=== PATIENT | female | born 1945 | race African-American/Black ===

== ENCOUNTER 2020-11-04 07:29 | Emergency (ER) | payer OTHER ==
[~2020-11-04] VITALS: Ht 167.6 cm; Wt 79.4 kg
--- NOTE | 2020-11-04 08:00 | EKG ---
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: ANURADHA : 1945 Requested By: Akbar Manuel Order Number: [id number] MD: Juan Simmons Measurements Intervals [place] Rate: 85 P: -6 MS: 171 QRS: -39 QRSD: 102 T: 33 QT: 412 QTc: 490 Interpretive Statements Sinus rhythm LVH with secondary repolarization abnormality Borderline prolonged QT interval Baseline wander in lead(s) V1 No previous ECG available for comparison Electronically Signed On 11-04-2020 7:59:49 CDT by Juan Simmons [email or web address] <ELECTRONICALLY SIGNED> By: Juan Simmons MD, [facility] 11/04/20 0759 [id number] [id number] Juan Simmons MD, FACC /EPI
[2020-11-04 08:56] LABS: URINE BLOOD NEGATIVE (Negative); URINE CLARITY CLEAR; URINE COLOR YELLOW; URINE GLUCOSE-RANDOM* NEGATIVE (Negative); URINE KETONES NEGATIVE (Negative); URINE LEUKOCYTES-REFLEX NEGATIVE (Negative); URINE NITRITE-REFLEX NEGATIVE (Negative); URINE PROTEIN (DIPSTICK) TRACE (Negative); URINE SPECIFIC GRAVITY >= 1.030 (1.005-1.035); URINE UROBILINOGEN 0.2 E.U./dl (0.2-1.0)
[2020-11-04 08:58] LABS: ICTOTEST (BILI CONFIRMATORY) Negative (Negative); URINE BILIRUBIN NEGATIVE (Negative)
[2020-11-04 09:39] LABS: ABSOLUTE NEUTROPHILS 5.7 thou/uL (1.4-8.2); BASOPHILS 0.4 % (0.0-2.0); HEMATOCRIT 32.2 % (37.0-47.0); HEMOGLOBIN 10.2 gm/dL (12.0-15.0); LYMPHOCYTES 14.8 % (24.0-44.0); MCH 23.3 pg (26.0-34.0); MCHC 31.6 g/dL (28.0-37.0); MCV 73.7 fL (80.0-100.0); MONOCYTES 5.4 % (1.0-8.0); PLATELET COUNT 231 thou/uL (150-400); POLYS 79.4 % (36.0-66.0); RBC 4.37 mil/uL (4.20-5.00); RDW 15.2 % (10.5-14.5); WBC 7.2 thou/uL (4.0-11.0)
[2020-11-04 10:14] LABS: CALCIUM 9.7 mg/dL (8.5-10.1); CREATININE 2.1 mg/dL (0.6-1.0); POTASSIUM 3.3 mmol/L (3.5-5.1)
[2020-11-04 11:10] VITALS: BP 153/75
== END 2020-11-04 11:10 | disposition home or self-care (01) ==
LOC: ER 07:29
PROVIDERS: Student in an Organized Health Care Education/Training Program
DX: F03.90 Unspecified dementia, unspecified severity, without behavioral disturbance, psychotic disturbance, mood disturbance, and anxiety (principal); Z20.822 Contact with and (suspected) exposure to COVID-19

== ENCOUNTER 2020-11-19 10:08 | Emergency (ER) | payer OTHER ==
[~2020-11-19] VITALS: Ht 167.6 cm; Wt 79.4 kg
--- NOTE | ~2020-11-19 | EMS ---
[address] [address] EMS Patient Care Report Name: TERESA VERMA Room #: DEP VINITA Zuleta#: [id number] Admission: 11/19/20 Attend Phys: Discharge: 11/19/20 Date of : 41 Report #: [id number] THIS REPORT FOR: //name// Report Transmitted: 11/21/2020 14:31 EMS Care Summary [place], [place]/[facility] Incident [id number] @ 11/19/2020 09:25 Incident Location [address] [place] [id number] Patient MICHAEL VERMA Female, 75 Years 1945 Patient Address Patient History Alzheimer's, Patient Allergies No known allergies, Chief Complaint generalized weakness Disposition Transported No Lights/[place] Reason Falls Transported To [facility] Narrative ems met pts family on scene. pts reported pt fell from a standing position in kitchen. neg loc. neg blood thinners. pts stated pt did not hit her head. pts stated pt has had generalized weakness x3 days. pts requested pt to be transported to [facility]. pt found sitting in chair and is being supported by family. pt alert and confused gcs 14. pt complains of generalized weakness. pts stated pt is at her baseline and has an Alzheimer's hx. pt was carried [place] style to ems cot. pt was transferred onto ems cot and was secured in a semi fowlers position without incident. pt [address] [place] [address] EMS Patient Care Report Name: TERESA VERMA Room #: DEP Merlyn#: [id number] Admission: 11/19/20 Attend Phys: Discharge: 11/19/20 Date of : 41 Report #: [id number] was loaded into ambulance. pt was administered 2lpm o2 via nc. iv access was sought after but was not attempted due to no available vasculature. pt was transported non emergent. transport was uneventful and pt rested on ems cot. pt care was transferred to appropriate staff and ems goes back in service. pts id was left with staff. Initial Vitals @09:43P: 76,R: 20,BP: 102/68,Pain: 0/10,GCS: 14,Glucose: 117,SpO2: 90,Revised Trauma: 12, @10:05P: 76,R: 20,BP: 102/64,GCS: 14,SpO2: 97,Revised Trauma: 12, Assessments @09:41MENTAL:No Abnormalities,SKIN:No Abnormalities,HEENT:Head/Face: No Abnormalities,Eyes: No Abnormalities,Neck/Airway: No Abnormalities,LUNG SOUNDS:General: No Abnormalities,Left Upper: No Abnormalities,Right Upper: No Abnormalities,Left Lower: No Abnormalities,Right Lower: No Abnormalities,ABDOMEN:General: No Abnormalities,Left Upper: No Abnormalities,Right Upper: No Abnormalities,Left Lower: No Abnormalities,Right Lower: No Abnormalities,PELVIS//GI:No Abnormalities,EXTREMITIES:Left Arm: No Abnormalities,Right Arm: No Abnormalities,Left Leg: No Abnormalities,Right Leg: No Abnormalities,PULSE:NEURO:No Abnormalities,@09:55MENTAL:No Abnormalities,SKIN:No Abnormalities,HEENT:Head/Face: No Abnormalities,Eyes: No Abnormalities,Neck/Airway: No Abnormalities,LUNG SOUNDS:General: No Abnormalities,Left Upper: No Abnormalities,Right Upper: No Abnormalities,Left Lower: No Abnormalities,Right Lower: No Abnormalities,ABDOMEN:General: No Abnormalities,Left Upper: No Abnormalities,Right Upper: No Abnormalities,Left Lower: No Abnormalities,Right Lower: No Abnormalities,PELVIS//GI:No Abnormalities,EXTREMITIES:Left Arm: No Abnormalities,Right Arm: No Abnormalities,Left Leg: No Abnormalities,Right Leg: No Abnormalities,PULSE:NEURO:No Abnormalities, Impression Generalized Weakness Procedures @09:41ALS AssessmentResponse: UnchangedSucceeded@09:44Oxygen FlowRate: 2 Device: Nasal Cannula (NC) Response: ImprovedSucceeded Timeline 09:22,Call Received 09:22,Dispatch Notified 09:25,Dispatched 09:26,En Route 09:40,On Scene 09:41,At Patient 09:41,ALS Assessment,Response: UnchangedSucceeded, [address] [address] EMS Patient Care Report Name: TERESA VERMA Room #: DEP Merlyn#: [id number] Admission: 11/19/20 Attend Phys: Discharge: 11/19/20 Date of : 41 Report #: [id number] 09:43,BP: 102/68 M,PULSE: 76,RR: 20 R,SPO2: 90 Ox,ETCO2: ,B,PAIN: 0,GCS: 14, 09:44,Oxygen FlowRate: 2 Device: Nasal Cannula (NC) Response: ImprovedSucceeded, 09:50,Depart Scene 10:00,At Destination 10:05,BP: 102/64 M,PULSE: 76,RR: 20 R,SPO2: 97 Ox,ETCO2: ,BG: ,PAIN: ,GCS: 14, 10:14,Call Closed Disclaimer v1.1 Copyright 2020 [employer] This EMS Care Summary contains data elements from the applicable legal record (which may be displayed differently). It is designed to provide pertinent information for the following purposes: continuity of care, clinical quality, and state data reporting. The complete legal record is available to ED staff and administrators of the receiving hospital in [facility] Patient Tracker. All data is provided "as is."
[2020-11-19 10:30] LABS: ABSOLUTE NEUTROPHILS 5.6 thou/uL (1.4-8.2); BASOPHILS 0.3 % (0.0-2.0); EOSINOPHILS 0.4 % (0.0-3.0); HEMATOCRIT 37.3 % (37.0-47.0); HEMOGLOBIN 11.7 gm/dL (12.0-15.0); LYMPHOCYTES 25.3 % (24.0-44.0); MCH 23.7 pg (26.0-34.0); MCHC 31.4 g/dL (28.0-37.0); MCV 75.4 fL (80.0-100.0); MONOCYTES 5.6 % (1.0-8.0); POLYS 68.4 % (36.0-66.0); RBC 4.94 mil/uL (4.20-5.00)
[2020-11-19 10:39] LABS: URINE BLOOD TRACE (Negative); URINE CLARITY CLOUDY; URINE COLOR YELLOW; URINE GLUCOSE-RANDOM* NEGATIVE (Negative); URINE KETONES 1+ (Negative); URINE LEUKOCYTES-REFLEX TRACE (Negative); URINE NITRITE-REFLEX NEGATIVE (Negative); URINE PROTEIN (DIPSTICK) 1+ (Negative); URINE SPECIFIC GRAVITY >= 1.030 (1.005-1.035)
[2020-11-19 10:43] LABS: CALCIUM 9.8 mg/dL (8.5-10.1); CREATININE 2.5 mg/dL (0.6-1.0)
[2020-11-19 10:44] LABS: POTASSIUM 5.5 mmol/L (3.5-5.1)
[2020-11-19 10:51] LABS: ALBUMIN 3.7 g/dL (3.4-5.0); TOTAL BILIRUBIN 1.2 mg/dL (0.2-1.0); TOTAL PROTEIN 8.7 g/dL (6.4-8.2)
[2020-11-19 11:04] LABS: URINE BILIRUBIN NEGATIVE (Negative)
[2020-11-19 11:05] LABS: ICTOTEST (BILI CONFIRMATORY) Negative (Negative)
[2020-11-19 11:25] LABS: PLATELET COUNT 176 thou/uL (150-400)
[2020-11-19 11:45] LABS: SQUAMOUS >10 Many /LPF (0-3); URINE WBC-REFLEX 6-15 Few /HPF (0-5)
[2020-11-19 11:46] LABS: AMORPHOUS URATES Moderate /LPF (None Seen); BACTERIA-REFLEX 1-9 Few /HPF (None Seen); CASTS None Seen /LPF (None Seen); URINE RBC 1-2 Rare /HPF (NONE SEEN)
[2020-11-19 14:12] LABS: CREATININE 2.6 mg/dL (0.6-1.0)
[2020-11-19 14:16] LABS: POTASSIUM 2.9 mmol/L (3.5-5.1)
[2020-11-19 15:45] VITALS: BP 106/86
--- NOTE | 2020-11-20 07:22 | EKG ---
[place] [address] [facility] [place] [address] ELECTROCARDIOGRAM REPORT Name: TERESA VERMA [id number] Admission: 11/19/20 Attend Phys: Discharge: 11/19/20 Date of : 41 Report #: [id number] [facility] ED Test Date: 2020-11-19 Test Time: 10:13:55 Pat Name: TERESA VERMA Department: Room: Gender: F Pelt Dropper: YEHUDA : 1945 Requested By: Miguel Luu Order Number: [id number] MD: Srikanth Willoughby Measurements Intervals [place] Rate: 78 P: -23 [place]: 185 QRS: -36 QRSD: 101 T: -8 QT: 434 QTc: 495 Interpretive Statements Sinus rhythm Left ventricular hypertrophy Inferior infarct, old Compared to ECG 11/04/2020 07:41:38 Myocardial infarct finding now present Early repolarization no longer present Electronically Signed On 11-20-2020 7:22:36 CDT by Srikanth Willoughby [email or web address] <ELECTRONICALLY SIGNED> By: Srikanth Willoughby MD, [facility] 11/20/20 0722 1013 12 Srikanth Willoughby MD, FACC /EPI
== END 2020-11-19 15:57 | disposition home or self-care (01) ==
LOC: ER 10:08
PROVIDERS: Emergency Medicine
DX: E87.6 Hypokalemia (principal); Z20.822 Contact with and (suspected) exposure to COVID-19; G30.8 Other Alzheimer's disease; F02.80 Dementia in other diseases classified elsewhere, unspecified severity, without behavioral disturbance, psychotic disturbance, mood disturbance, and anxiety; W19.XXXA Unspecified fall, initial encounter; Y93.89 Activity, other specified; Y92.89 Other specified places as the place of occurrence of the external cause; Y99.8 Other external cause status

== ENCOUNTER 2020-11-28 13:57 | Emergency (ER) | payer OTHER ==
[~2020-11-28] VITALS: Ht 167.6 cm; Wt 79.4 kg
[2020-11-28 14:52] LABS: ABSOLUTE NEUTROPHILS 3.5 thou/uL (1.4-8.2); EOSINOPHILS 0.8 % (0.0-3.0); HEMATOCRIT 34.4 % (37.0-47.0); HEMOGLOBIN 10.8 gm/dL (12.0-15.0); LYMPHOCYTES 28.8 % (24.0-44.0); MCH 23.4 pg (26.0-34.0); MCHC 31.4 g/dL (28.0-37.0); MCV 74.4 fL (80.0-100.0); MONOCYTES 8.1 % (1.0-8.0); PLATELET COUNT 173 thou/uL (150-400); POLYS 61.3 % (36.0-66.0); RBC 4.62 mil/uL (4.20-5.00); WBC 5.6 thou/uL (4.0-11.0)
[2020-11-28 15:03] LABS: URINE BILIRUBIN 2+ (Negative); URINE BLOOD TRACE (Negative); URINE CLARITY CLEAR; URINE COLOR YELLOW; URINE GLUCOSE-RANDOM* NEGATIVE (Negative); URINE KETONES TRACE (Negative); URINE LEUKOCYTES-REFLEX NEGATIVE (Negative); URINE NITRITE-REFLEX NEGATIVE (Negative); URINE PROTEIN (DIPSTICK) NEGATIVE (Negative); URINE SPECIFIC GRAVITY 1.025 (1.005-1.035); URINE UROBILINOGEN 0.2 E.U./dl (0.2-1.0)
[2020-11-28 15:04] LABS: CALCIUM 9.1 mg/dL (8.5-10.1); POTASSIUM 3.9 mmol/L (3.5-5.1)
[2020-11-28 15:14] LABS: ALBUMIN 3.5 g/dL (3.4-5.0); TOTAL BILIRUBIN 0.9 mg/dL (0.2-1.0); TOTAL PROTEIN 7.5 g/dL (6.4-8.2)
[2020-11-28 15:15] LABS: ICTOTEST (BILI CONFIRMATORY) Negative (Negative)
--- NOTE | 2020-11-28 16:10 | EKG ---
[place] [address] [facility] [place] [address] ELECTROCARDIOGRAM REPORT Name: MICHAEL VERMA Room #: REG VINITA Zuleta#: [id number] Admission: 11/28/20 Attend Phys: Discharge: Date of : 41 Report #: [id number] 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: SARA : 1945 Requested By: Jovita Novoa Order Number: [id number] MD: Srikanth Willoughby Measurements Intervals [place] Rate: 70 P: -2 [place]: 169 QRS: -37 QRSD: 101 T: 27 QT: 424 QTc: 458 Interpretive Statements Sinus rhythm LVH with secondary repolarization abnormality Baseline wander in lead(s) II,III,aVR,aVF Compared to ECG 11/19/2020 10:13:55 Early repolarization now present Myocardial infarct finding no longer present Electronically Signed On 11-28-2020 16:09:59 CDT by Srikanth Willoughby [email or web address] <ELECTRONICALLY SIGNED> By: Srikanth Willoughby MD, [facility] 11/28/20 1609 02 02 Srikanth Willoughby MD, FAC /EPI
[2020-11-28 16:33] VITALS: BP 130/64
== END 2020-11-28 16:35 | disposition home or self-care (01) ==
LOC: ER 13:57
PROVIDERS: Nurse Practitioner Family
DX: R62.7 Adult failure to thrive (principal); Z20.822 Contact with and (suspected) exposure to COVID-19; F02.80 Dementia in other diseases classified elsewhere, unspecified severity, without behavioral disturbance, psychotic disturbance, mood disturbance, and anxiety; G30.8 Other Alzheimer's disease; R53.1 Weakness; Z68.28 Body mass index [BMI] 28.0-28.9, adult